=== PATIENT | male | born 1965 | race Hispanic/Latino ===

== ENCOUNTER 2016-07-06 12:06 | Emergency (ER) | payer MEDICAID ==
[2016-07-06] MEDS ORDERED: HYDROcodone/APAP 5/325 MG 1 TAB TABLET PO ONE (13:06)
[2016-07-06] MEDS ORDERED: AMOX TR/CLAV 875/125 MG 1 TAB TABLET PO ONE (13:06)
--- NOTE | 2016-07-06 13:15 | ER PHYSICIAN DOCUMENTATION ---
Physician Documentation [facility] Name:Roldan Borja Jr Age:51 yrs Sex:Male :1965 Arrival Date:07/06/2016 Time:12:06 Bed2 Private MD:Reyna, Provider ED Richard Renae Disposition: 07/06/16 12:52 Discharged to Home/Self Care. Impression: Parotitis. - Condition is Good. - Discharge Instructions: PAROTID GLAND SWELLING Unk Cause - SALIVARY GLAND SWELLING, Unk Cause. - Prescriptions for Augmentin 875- 125 mg Oral Tablet - take 1 tablet by ORAL route every 12 hours for 10 days; 20 tablet. Hydrocodone- Acetaminophen 5-325 mg Oral - take 1 tablet by ORAL route every 6 hours As needed; 15 tablet. - Medical Reconciliation form form. - Follow up: Private Physician; When: Call tomorrow for an appointment with Dr. Small ENT on ThursdayJuly 11; Reason: Continuance of care. - Problem is new. - Symptoms have improved. HPI: 07/06 13:00 This 51 yrs old Male presents to ER via Private Vehicle with complaints of Jaw jm Pain. 13:00 The patient presents with pain, that is acute, swelling. The problem is located in the jm left submandibular area and face and left jaw. Onset: The symptom(s)/episode began/occurred 5 day(s) ago, and became worse today. Duration: The symptoms are continuous. Associated signs and symptoms: Pertinent positives: trismus , Pertinent negatives: fever, redness in area. Severity of symptoms: in the emergency department the symptoms are unchanged. The patient has not experienced similar symptoms in the past. Pt states that he's noted some swelling today, but pain has increased over 5 days. No fever. Historical: - Allergies: No known drug Allergies; - Home Meds: 1. None - PMHx: HEPATITIS; - PSHx: None; - Tetanus: < 10 years > 10 years Other NOW STATED. - Ebola Screening: : Patient negative for fever greater than or equal to 101.5 degrees Fahrenheit, and additional compatible Ebola Virus Disease symptoms. Patient denies exposure to infectious person. Patient denies travel to an Ebola-affected area in the 21 days before illness onset. . - Immunization history: Flu Vaccine >1 year. - Social history: Smoking status: Patient uses tobacco products, current every day smoker. ROS: 13:00 Constitutional: Negative for fatigue, fever. jm 13:00 ENT: Positive for difficulty swallowing, Negative for ear pain, sinus congestion, sore throat, dental pain, hoarseness. 13:00 Neck: Positive for swelling, Negative for pain with movement, pain at rest. 13:00 Respiratory: Negative for cough, shortness of breath. Exam: 13:00 Constitutional: The patient appears alert, awake. jm 13:00 ENT: Mouth: mild trismus, but no sublingual pain. Mild pain around the L jaw line around the parotid and submandibular gland. , Posterior pharynx: is normal, swelling, is not appreciated, erythema, is not appreciated, Dental exam: abscess, is not appreciated, Voice: is normal. 13:00 Neck: External neck: crepitus, is not appreciated, erythema, is not appreciated, swelling, that is mild, of the left submandibular area, Trachea: is midline with no obvious abnormalities. 13:00 Cardiovascular: Rate: normal, Rhythm: regular. 13:00 Respiratory: Respirations: normal, Breath sounds: are normal. Vital Signs: 12:11 BP 136 / 101; Pulse 71; Resp 16; Temp 98.5(O); Pulse Ox 95% on R/A; Weight 74.84 kg arc (R); Height 5 ft. 10 in. (177.80 cm) (R); Pain 9/10; 13:12 Pulse 65; Resp 19; Pulse Ox 95% on R/A; Pain 6/10; lc 12:11 Body Mass Index 23.67 (74.84 kg, 177.80 cm) arc MDM: 12:31 Patient medically screened. 15:17 Differential diagnosis: parotitis, abscess. Data reviewed: vital signs, nurses notes, jm and as a result, I will discharge patient. Counseling: I had a detailed discussion with the patient and/or guardian regarding: the historical points, exam findings, and any diagnostic results supporting the discharge/admit diagnosis, the need for outpatient follow up, an ENT specialist. Medication response: The patient's symptoms have improved. ED course: Will do trial of Augmentin and Vicodin. Pt told to call clinic tomorrow for appointment with Dr. Small on Thursdayjuly 11. . Dispensed Medications: 13:00 Drug: HYDROcodone-acetaminophen 5 mg-325 mg 1 tabs; Route: PO; 13:11 Follow up: Response: No adverse reaction 13:00 Drug: Augmentin 875 mg 1 tabs; Route: PO; lc 13:11 Follow up: Response: No adverse reaction lc Signatures: Lesley Travis RN RN Richard Ulloa MD MD jm
--- NOTE | 2016-07-06 13:15 | ER NURSING DOCUMENTATION ---
Nurse's Notes [facility] Name:Roldan Borja Jr Age:51 yrs Sex:Male :1965 Arrival Date:07/06/2016 Time:12:06 Bed2 Private MD:Reyna, Provider Diagnosis:Parotitis Presentation: 07/06 12:13 Presenting complaint: Patient states: HAD EAR WAX PROBLEM 3 MOS [facility]GO [facility] SINCE C/O DULL ACHING TO LEFT EAR BUT LAST FEW DAYS C/O JAW ACHING NOW WITH DECREASED ROM. NO TRAUMA. TRIED TYLENOL, ALEVE AND ADVIL WITHOUT RELIEF. Transition of care: patient was not received from another setting of care. Notified ED Physician of patient's arrival and CC. 12:13 Acuity: JAX 3 12:13 Method Of Arrival: Private Vehicle Triage Assessment: 12:17 General: Appears uncomfortable, Behavior is cooperative. Pain: Complains of pain in left jaw Pain radiates to DOWN JAW Pain At worst was 9 out of 10 on a pain scale. Quality of pain is described as aching, dull, tender. EENT: TROUBLE OPENING JAW. Respiratory: Airway is patent Respiratory effort is even, unlabored, Respiratory pattern is regular, symmetrical. Derm: Skin is pink, warm & dry. Historical: - Allergies: No known drug Allergies; - Home Meds: 1. None - PMHx: HEPATITIS; - PSHx: None; - Tetanus: < 10 years > 10 years Other NOW STATED. - Ebola Screening: : Patient negative for fever greater than or equal to 101.5 degrees Fahrenheit, and additional compatible Ebola Virus Disease symptoms. Patient denies exposure to infectious person. Patient denies travel to an Ebola-affected area in the 21 days before illness onset. . - Immunization history: Flu Vaccine >1 year. - Social history: Smoking status: Patient uses tobacco products, current every day smoker. Screenin:21 Infectious Disease Risk Hepatitis Other: C. Abuse screen: Denies threats or abuse. lc Denies injuries from another. Nutritional screening: No deficits noted. 12:21 Nutritional screening: Difficulty chewing/swallowing? Yes. Assessment: 12:21 See Triage Assessment done by same RN. Vital Signs: 12:11 BP 136 / 101; Pulse 71; Resp 16; Temp 98.5(O); Pulse Ox 95% on R/A; Weight 74.84 kg arc (R); Height 5 ft. 10 in. (177.80 cm) (R); Pain 9/10; 13:12 Pulse 65; Resp 19; Pulse Ox 95% on R/A; Pain 6/10; lc 12:11 Body Mass Index 23.67 (74.84 kg, 177.80 cm) arc ED Course: 12:07 Patient arrived in ED. arc 12:07 Reyna, Provider is Private Physician. arc 12:13 Lesley Travis, RN is Primary Nurse. lc 12:15 Triage completed. lc 12:22 Valuables Remains with patient Patient has correct armband on for positive lc identification. Bed in low position. Call light in reach. Adult w/ patient. Head of bed elevated. 12:31 Richard Billings MD is Attending Physician. laura Administered Medications: 13:00 Drug: HYDROcodone-acetaminophen 5 mg-325 mg 1 tabs; Route: PO; lc 13:11 Follow up: Response: No adverse reaction lc 13:00 Drug: Augmentin 875 mg 1 tabs; Route: PO; lc 13:11 Follow up: Response: No adverse reaction lc Outcome: 12:52 Discharge ordered by . laura 13:12 Discharged to home ambulatory, with family. lc 13:12 Condition: stable 13:12 Discharge Assessment: Patient awake, alert and oriented x 3. No cognitive and/or functional deficits noted. Patient verbalized understanding of disposition instructions. 13:12 Discharge instructions given to patient, family, Instructed on discharge instructions, follow up and referral plans. medication usage, Demonstrated understanding of instructions, medications, Prescriptions given X 2. 13:14 Patient left the ED. lc Signatures: Lesley Travis, AIME RN Richard Billings MD MD jm Chew, Joyce, Reg Reg arc
== END 2016-07-06 13:15 | disposition home or self-care (01) ==
LOC: ER 12:06
DX: K11.21 Acute sialoadenitis (principal); R68.84 Jaw pain; R25.2 Cramp and spasm
CPT/HCPCS: 99283